=== PATIENT | male | born 1985 | race Caucasian/White ===

== ENCOUNTER 2023-04-08 15:00 | Inpatient (IN) | payer BC ==
[~2023-04-08] VITALS: Ht 185.4 cm; Wt 80.1 kg
[2023-04-08] MEDS ORDERED: VANCOMYCIN 1 GM in IV D5W 250 ML IV ONE (16:00)
[2023-04-08] MEDS ORDERED: SULF1TAB48 PO (16:06)
[2023-04-08] MEDS ORDERED: CEPH500T PO (16:06)
[2023-04-08] MEDS ORDERED: IBUP200T18 PO (16:06)
[2023-04-08] MEDS ORDERED: CETI-90 PO (16:06)
[2023-04-08] MEDS ORDERED: FLUT16SP16 BNOSTRILS (16:06)
[2023-04-08] MEDS ORDERED: PANT40TA49 PO (16:06)
[2023-04-08 16:26] LABS: BASOPHILS % (AUTO) 0.3 % (0.0-2.0); EOSINOPHILS % (AUTO) 0.4 % (0.0-6.0); HEMATOCRIT 43 % (39-51); HEMOGLOBIN 14.4 g/dL (13.5-17.5); LYMPHOCYTES # (AUTO) 1.2 K/uL (0.8-4.8); LYMPHOCYTES % (AUTO) 11.8 % (20.0-44.0); MEAN CORPUSCULAR HEMOGLOBIN 31 PG (26.0-33.0); MEAN CORPUSCULAR HGB CONC 34 g/dl (31.0-36.0); MEAN CORPUSCULAR VOLUME 93 fL (80-96); MONOCYTES # (AUTO) 0.8 K/uL (0.1-1.30); MONOCYTES % (AUTO) 7.4 % (2.0-12.0); NEUTROPHILS # (AUTO) 8.4 K/uL (1.8-8.9); NEUTROPHILS % (AUTO) 80.1 % (43.0-81.0); PLATELET COUNT (AUTO) 209 K/uL (150-450); RED BLOOD CELL COUNT(AUTO) 4.61 MIL/uL (4.5-6.0); RED CELL DISTRIBUTION WIDTH 12.3 % (11.5-15.0); WHITE BLOOD COUNT (AUTO) 10.5 K/uL (4.3-11.0)
[2023-04-08] MEDS ORDERED: VANCOMYCIN 1 GM /D5W 250 ML PB IV ONE (16:37)
[2023-04-08 16:39] LABS: CALCIUM, SERUM 9.4 mg/dL (8.5-10.1); POTASSIUM 4.3 mmol/L (3.5-5.1)
[2023-04-08 16:48] LABS: LACTIC ACID 1.2 mmol/L (0.4-2.0)
[2023-04-08 16:52] LABS: INR 1.14 (0.91-1.10); PARTIAL THROMBOPLASTIN TIME 28.9 SEC (24.3-34.3); PROTHROMBIN TIME 11.9 SECS (9.2-11.1)
[2023-04-08] MEDS ORDERED: IOHEXOL-300 100 ML VIAL IV ONE (17:08)
[2023-04-08] MEDS ORDERED: CT SWABBABLE VALVE TRANS SET 1 EA INFUS.SET MC ONE (17:08)
[2023-04-08] MEDS ORDERED: IV NS 0.9% 250 ML IV ONE (17:08)
[2023-04-08] MEDS ORDERED: ONDANSETRON HCL/PF 4 MG/2 ML VIAL IVP PRN (19:00)
[2023-04-08 21:06] VITALS: BP 142/80; TEMP 101; O2SAT 99
[2023-04-08] MEDS: IV NS 0.9% 1,000 ML IV PRN (21:46)
[2023-04-08] MEDS: cetrizine 10 MG TABLET PO SCH (21:48)
[2023-04-08] MEDS ORDERED: CEFTRIAXONE 1GM BAG (ER ONLY) 50 ML IV ONE (21:50)
[2023-04-08] MEDS: CEFTRIAXONE 1 G in IV D5W 50 ML IV SCH (21:54)
[2023-04-08] MEDS: ACETAMINOPHEN 325 MG TABLET PO PRN (22:06)
[2023-04-08 23:07] VITALS: BP 142/80; TEMP 101; O2SAT 99
[2023-04-08] MEDS: VANCOMYCIN 1 GM in IV D5W 250ml IV SCH (23:30)
[2023-04-08] MEDS: TEMAZEPAM 15 MG CAPSULE PO PRN (23:53)
[2023-04-09] VITALS: TEMP 100.7
[2023-04-09 05:00] VITALS: TEMP 98.4
[2023-04-09 07:00] VITALS: BP 128/75; TEMP 98.9; O2SAT 99
[2023-04-09 07:01] LABS: BASOPHILS # (AUTO) 0.1 K/uL (0.0-0.2); BASOPHILS % (AUTO) 0.5 % (0.0-2.0); EOSINOPHILS # (AUTO) 0.1 K/uL (0.0-0.7); EOSINOPHILS % (AUTO) 1.1 % (0.0-6.0); HEMATOCRIT 41 % (39-51); HEMOGLOBIN 14.2 g/dL (13.5-17.5); LYMPHOCYTES # (AUTO) 1.9 K/uL (0.8-4.8); LYMPHOCYTES % (AUTO) 18.8 % (20.0-44.0); MEAN CORPUSCULAR HEMOGLOBIN 32 PG (26.0-33.0); MEAN CORPUSCULAR HGB CONC 35 g/dl (31.0-36.0); MEAN CORPUSCULAR VOLUME 93 fL (80-96); MONOCYTES # (AUTO) 0.9 K/uL (0.1-1.30); MONOCYTES % (AUTO) 9.4 % (2.0-12.0); NEUTROPHILS # (AUTO) 7.1 K/uL (1.8-8.9); NEUTROPHILS % (AUTO) 70.2 % (43.0-81.0); PLATELET COUNT (AUTO) 187 K/uL (150-450); RED BLOOD CELL COUNT(AUTO) 4.43 MIL/uL (4.5-6.0); RED CELL DISTRIBUTION WIDTH 12.2 % (11.5-15.0); WHITE BLOOD COUNT (AUTO) 10.1 K/uL (4.3-11.0)
[2023-04-09 07:09] LABS: CALCIUM, SERUM 9.2 mg/dL (8.5-10.1); CREATININE 0.9 mg/dL (0.6-1.3); MAGNESIUM 2.4 mg/dL (1.8-2.4); PHOSPHORUS 4.1 mg/dL (2.5-4.9); POTASSIUM 3.9 mmol/L (3.5-5.1)
[2023-04-09] MEDS: VANCOMYCIN 1 GM in IV D5W 250ml IV SCH (07:47)
[2023-04-09] MEDS: PANTOPRAZOLE 40 MG TABLET.DR PO SCH (08:43)
[2023-04-09] MEDS: FLUTICASONE PROPIONATE 16 GM BOTTLE NS SCH (08:43)
[2023-04-09] MEDS: IV NS 0.9% 1,000 ML IV PRN (11:45)
[2023-04-09 16:00] VITALS: BP 128/79; TEMP 98.9; O2SAT 96
[2023-04-09] MEDS: VANCOMYCIN 1.5 GM in IV D5W 500ml IV SCH (16:55)
[2023-04-09 20:00] VITALS: BP 124/85; TEMP 99.1; O2SAT 98
[2023-04-09] MEDS: ACETAMINOPHEN 325 MG TABLET PO PRN (20:38)
[2023-04-09] MEDS: cetrizine 10 MG TABLET PO SCH (21:04)
[2023-04-09] MEDS: CEFTRIAXONE 1 G in IV D5W 50 ML IV SCH (21:05)
[2023-04-09] MEDS: TEMAZEPAM 15 MG CAPSULE PO PRN (21:48)
[2023-04-10] MEDS: VANCOMYCIN 1.5 GM in IV D5W 500ml IV SCH ×3 (01:57→16:13)
[2023-04-10 02:15] VITALS: TEMP 98.1
[2023-04-10 04:00] VITALS: BP 132/76; TEMP 98.2
[2023-04-10 06:12] LABS: CALCIUM, SERUM 9.2 mg/dL (8.5-10.1); CREATININE 0.9 mg/dL (0.6-1.3); POTASSIUM 3.5 mmol/L (3.5-5.1)
[2023-04-10 08:00] VITALS: BP 139/79; TEMP 98.6; O2SAT 98
[2023-04-10] MEDS: PANTOPRAZOLE 40 MG TABLET.DR PO SCH (08:21)
[2023-04-10] MEDS: FLUTICASONE PROPIONATE 16 GM BOTTLE NS SCH (08:23)
[2023-04-10] MEDS: IV NS 0.9% 1,000 ML IV PRN (08:26)
[2023-04-10] MEDS ORDERED: LEVO750T46 PO (15:43)
[2023-04-10] MEDS ORDERED: SULF1TAB48 PO (15:43)
[2023-04-10 18:57] VITALS: BP 132/76; TEMP 98.2; O2SAT 97
== END 2023-04-10 18:37 | disposition home or self-care (01) | DRG 603 ==
LOC: ER 15:21 → MED 20:55
PROVIDERS: ADMIT Nurse Practitioner Acute Care; ATTEND Nurse Practitioner Acute Care
DX: L03.114 Cellulitis of left upper limb (principal); K21.9 Gastro-esophageal reflux disease without esophagitis; Z91.018 Allergy to other foods; Z91.09 Other allergy status, other than to drugs and biological substances; Z79.899 Other long term (current) drug therapy; L30.9 Dermatitis, unspecified
CPT/HCPCS: 36415; 73201-TC; 80048-TC; 80202-TC; 83605-TC; 83735-TC; 84100-TC; 85025-TC; 85730-TC; 87040-TC; 87081-TC; A4223; G0378; J0696; J3370; J7030; J7050; J7060; Q9967